=== PATIENT | male | born 1960 | race Caucasian/White ===

== ENCOUNTER 2018-01-07 14:15 | Outpatient (CLI) | payer BC ==
[~2018-01-07] VITALS: Ht 175.3 cm; Wt 127.0 kg
[2018-01-07] MEDS ORDERED: LISI-552 PO (14:26)
[2018-01-07] MEDS ORDERED: ALLO300T2 PO (14:26)
== END 2018-01-07 14:30 | disposition home or self-care (01) ==
LOC: PREOP 14:15
PROVIDERS: ATTEND Surgery
DX: Z01.818 Encounter for other preprocedural examination (principal)

== ENCOUNTER 2018-01-13 10:10 | Day surgery (SDC) | payer BC ==
[~2018-01-13] VITALS: Ht 175.3 cm; Wt 127.0 kg
[~2018-01-13 10:10] MED LIST: ALLO300T2 PO; LISI-552 PO
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
--- NOTE | 2018-01-13 10:39 | Progress Note-Pre Operative ---
Pre-Operative Progress Note H&P Reviewed The H&P was reviewed, patient examined and no changes noted. Time Seen by Provider: 10:32 Date H&P Reviewed: Jan 13, 2018 Time H&P Reviewed: 10:33 Pre-Operative Diagnosis: screening colonoscopy JOSE LUIS SURESH DO Jan 13, 2018 10:39
[2018-01-13] MEDS ORDERED: LACTATED RINGERS 1,000 ML IV ONE (10:43)
[2018-01-13 10:55] VITALS: BP 127/88
[2018-01-13] MEDS ORDERED: proPOfol 200 MG/20 ML (DIPRIVAN) VIAL IV ONE (10:59)
[2018-01-13] MEDS ORDERED: MIDAZOLAM 2 MG/2 ML (VERSED) VIAL ONE (10:59)
[2018-01-13] MEDS ORDERED: LACTATED RINGERS 1,000 ML IV STA (11:24)
[2018-01-13 12:35] VITALS: BP 176/102
[2018-01-13 13:05] VITALS: BP 143/90
--- NOTE | 2018-01-13 13:07 | Endoscopy Discharge Instruct ---
Endo Procedure/Findings Findings 1.: Polyp 2.: Diverticulosis 3.: Internal Hemorrhoids Discharge Instructions - Activity: You might feel a little sleepy until tomorrow. This is due to the medicine you received to relax you. Until tomorrow, you should: NOT drive a car, operate machinery or power tools. NOT drink any alcoholic beverages. NOT make any important decisions or sign importortant papers. Do not return to work until tomorrow, unless otherwise instructed. Resume previous activities tomorrow. Diet: Start by taking liquids. If you tolerate liquids, advance to solid food. make an appointment for 1 week Instructions: 1.: Colonscopy in 5 years Notify Physician - If you experience excessive bleeding, unusual abdominal pain, fever, or chest pain, contact your doctor immediately. Follow-Up: - I have received and understand the above instructions and will call my doctor if I have any further questions. Patient Signature Date Nurse Signature Other (Relationship) JOSE LUIS SURESH DO Jan 13, 2018 13:07
--- NOTE | 2018-01-13 13:09 | Progress Note-Post Operative ---
Post-Operative Progess Note Surgeon (s)/Eyelet Maker (s) Surgeon JOSE LUIS SURESH DO Eyelet Maker: ANNA Erazo Pre-Operative Diagnosis screening colonoscopy Post-Operative Diagnosis Polyps Diverticula Int Hemorrhoids Procedure & Operative Findings Date of Procedure 01/13/18 Procedure Performed/Findings Colon with snare Colon with cold bx Anesthesia Type IV sedation by Anesthesia Estimated Blood Loss Estimated blood loss (mL): scant Specimens/Packing Specimens Removed Cecal polyp Transverse colon polyp Rectal polyp x 2 JOSE LUIS SURESH DO Jan 13, 2018 13:09
--- NOTE | 2018-01-13 13:17 | Anesthesia-General Post-Op ---
MAC Patient Condition Mental Status/LOC: Same as Preop Cardiovascular: Satisfactory Nausea/Vomiting: Absent Respiratory: Satisfactory Pain: Controlled Complications: Absent Post Op Complications Complications None Follow Up Care/Instructions Patient Instructions None needed. Anesthesiology Discharge Order Discharge Order Patient is doing well, no complaints, stable vital signs, no apparent adverse anesthesia problems. No complications reported per nursing. YESI PAUL CRNA Jan 13, 2018 13:17
[2018-01-13 13:25] VITALS: BP 143/90
--- NOTE | 2018-01-14 02:40 | OPERATIVE REPORT ---
DATE OF SERVICE: PREOPERATIVE DIAGNOSIS: Screening colonoscopy. POSTOPERATIVE DIAGNOSES: 1. Colon polyps. 2. Diverticula. 3. Internal hemorrhoids. PROCEDURES: 1. Colonoscopy with snare polypectomy. 2. Colonoscopy with cold biopsy. SURGEON: Sarmad Santamaria DO. CARPET JACK: SHIKHA Cleary. ANESTHESIA: IV sedation by the anesthesiologist. SPECIMEN: One polyp in the cecum, 1 polyp in the transverse colon and then 1 polyp from the descending colon and then 2 rectal polyps. BLOOD LOSS: Scant. FLUIDS: Per anesthesia. POSTOPERATIVE CONDITION: Stable. INDICATION FOR PROCEDURE: The patient is a 57-year-old male who has never had a colonoscopy and needs one for screening. FINDINGS: The patient had multiple polyps, 3 small flat ones and then 2 large rectal polyps. She also had some early diverticula and some internal hemorrhoids. PROCEDURE NOTE: After informed consent was obtained, the patient was brought to the endoscopy suite, placed in the bed in left lateral decubitus position. He was administered IV sedation by the anesthesiologist who then monitored his vitals the entire time, heart rate, blood pressure and pulse ox and the scope was inserted, pushed in from the rectum all the way to the cecum. On the way in, noted some diverticula, able to get all the way to cecum, took a picture of appendiceal orifice, noted the ileocecal valve and then slowly withdrew the scope insufflating to look circumferentially at the collado. Just outside of the cecal cap but still the cecum was a small flat polyp. Picture was taken. Did a cold biopsy of this and then continued to pullback up the ascending colon to the transverse colon and then down the transverse colon and down the transverse colon found another polyp, did another cold biopsy of this and then continued to hepatic flexure and then into the descending colon. In the descending colon, saw slightly larger polyp, did a snare polypectomy of this and continued down into the sigmoid. Again, through the sigmoid and descending colon, saw very small diverticula. Pictures were taken and then pulled down in the rectum, retroflexed in rectal vault, saw actually a large polyp larger than the one in the descending colon, took a picture of this, then took a picture of the internal hemorrhoids and then removed this polyp with a snare polypectomy and then saw another small polyp in the rectum, did another snare polypectomy, removed this, all these were sent. The scope was then removed. The patient tolerated the procedure. All polyps sent to the pathology. The patient recovered in the endoscopy suite. Job ID: [id number] DocumentID: [id number] Dictated Date: 01/13/2018 16:05:21 Roll On Man Date: 01/14/2018 02:39:30 Dictated By: DO NICOLETTE BOJORQUEZ
== END 2018-01-13 13:25 | disposition home or self-care (01) ==
LOC: ENDO 10:10
PROVIDERS: ATTEND Surgery
DX: Z12.11 Encounter for screening for malignant neoplasm of colon (principal); K63.5 Polyp of colon; D12.8 Benign neoplasm of rectum; K57.30 Diverticulosis of large intestine without perforation or abscess without bleeding; K64.8 Other hemorrhoids; E66.01 Morbid (severe) obesity due to excess calories; I10 Essential (primary) hypertension; Z80.3 Family history of malignant neoplasm of breast; Z80.1 Family history of malignant neoplasm of trachea, bronchus and lung; Z68.41 Body mass index [BMI] 40.0-44.9, adult; Z79.899 Other long term (current) drug therapy